=== PATIENT | female | born 1940 | race Caucasian/White ===

== ENCOUNTER 2017-01-15 09:45 | Inpatient (IN) | payer MEDICARE, OTHER ==
[2017-01-15] MEDS ORDERED: IPRATROPIUM/ALBUTEROL (0.5MG/3MG) NEB INH ONE (10:03)
[2017-01-15] MEDS ORDERED: BUMETANIDE IV 0.25 MG/ML VIAL IVP ONE ×2 (10:06→10:09)
--- NOTE | 2017-01-15 10:14 | Emergency Department Record ---
History of Present Illness - General Chief Complaint: Difficulty Breathing Stated Complaint: KAMAR Time Seen by Provider: 01/15/17 10:00 Source: Patient, Family Mode of Arrival: Wheelchair Limitations: No limitations - History of Present Illness Initial Comments: The patient is here due to SOB for the last day or so. She has also been coughing up colored sputum and may have aspirated a few days ago. There has also been a low grade fever with the cough but no CP or leg swelling. The patient has an extensive hx of CF, COPD, and Parkinson's Dz. MD Complaint: Shortness of breath Onset/Timin -: Days(s) Severity: Mild Severity scale (1-10): 1 Improves With: Bronchodilators, Oxygen Known History Of: Congestive heart failure, COPD Treatment Prior to Arrival Comment:: breathing treatments - Related Data Home Oxygen Therapy: Yes Home Oxygen Amount: 2 Liters Home Medications Medication Instructions Recorded Confirmed Last Taken Calcium Carb/Vitamin D3/Vit K1 1 each PO DAILY 01/15/17 01/15/17 1 Day Ago [Viactiv Soft Chew Tablet] ~01/14/17 Cholecalciferol (Vitamin D3) 2,000 unit PO DAILY 01/15/17 01/15/17 1 Day Ago [Vitamin D3] ~01/14/17 Digoxin [Lanoxin] 125 mcg PO DAILY 01/15/17 01/15/17 1 Day Ago ~01/14/17 Inulin/Chromium Picolinate [Fiber 2 each PO DAILY 01/15/17 01/15/17 1 Day Ago Gummies] ~01/14/17 Lisinopril [Prinivil] 2.5 mg PO DAILY 01/15/17 01/15/17 1 Day Ago ~01/14/17 Multivit with Calcium,Iron,Min 1 each PO DAILY 01/15/17 01/15/17 1 Day Ago [Multiple Vitamins For Women] ~01/14/17 Nitrofurantoin Macrocrystal 50 mg PO DAILY 01/15/17 01/15/17 1 Day Ago [Nitrofurantoin] ~01/14/17 Polyethylene Glycol 3350 [Miralax] 17 gm PO DAILY 01/15/17 01/15/17 1 Day Ago ~01/14/17 Venlafaxine HCl [Venlafaxine HCl 150 mg PO DAILY 11/05/17 11/05/17 1 Day Ago ER] ~01/14/17 Previous Rx's Medication Instructions Recorded Benzonatate [Tessalon Perles] 100 mg PO TID PRN #90 capsule 07/29/13 Levothyroxine Sodium [Synthroid] 100 mcg PO DAILYTHY #90 tablet 07/29/13 Potassium Chloride [Klor-Con M20] 20 meq PO BID #120 tab.er.prt 07/29/13 Allergies Allergy/AdvReac Type Severity Reaction Status Date / Time fentanyl [From DURAGESIC] Allergy Unknown RASH Verified 01/15/17 10:00 methadone [METHADONE] Allergy Unknown RASH Verified 01/15/17 10:00 paroxetine Allergy Unknown RASH Verified 01/15/17 10:00 pregabalin [From LYRICA] Allergy Unknown RASH Verified 01/15/17 10:00 tetanus toxoid, adsorbed Allergy Unknown RASH Verified 01/15/17 10:00 trihexyphenidyl HCl Allergy Unknown RASH Verified 01/15/17 10:00 [From ARTANE] adhesive tape Allergy RASH Verified 01/15/17 10:00 Travel Screening - Travel/Exposure Within Last 30 Days Have you traveled within the last 30 days?: No - Travel/Exposure Within Last Year Have you traveled outside the [place] in the last year?: No - Additonal Travel Details Have you been exposed to anyone with a communicable illness?: No - Travel Symptoms Symptom Screening: None Review of Systems Constitutional: Reports: Malaise. Denies: Chills Eyes: Denies: Eye discharge ENT: Denies: Congestion Respiratory: Reports: Cough, Dyspnea Cardiovascular: Denies: Arrhythmia, Chest pain Endocrine: Reports: Fatigue Gastrointestinal: Denies: Abdominal pain Genitourinary: Denies: Dysuria Musculoskeletal: Denies: Arthralgia Past Medical History - SOCIAL HISTORY Smoking Status: Former smoker - RESPIRATORY Hx Respiratory Disorders: Yes Hx Asthma: Yes Hx Bronchitis: Yes Hx COPD: Yes Hx Pneumonia: Yes - CARDIOVASCULAR Hx Cardio Disorders: Yes Hx Abnormal EKG: Yes Hx Cardiac Cath: Yes Hx Chest Pain: Yes Hx CHF: Yes Hx Deep Vein Thrombosis: Yes Hx Edema: Yes Hx Hypertension: Yes Hx Irregular Heartbeat: Yes (Afib) Hx Vascular Disease: Yes - NEURO Hx Neuro Disorders: Yes Hx Parkinson's Disease: Yes - GI Hx GI Disorders: Yes Hx GI Bleed: Yes Hx Reflux: Yes Hx Hiatal Hernia: Yes - Hx Genitourinary Disorders: Yes Hx Bladder Problem: Yes Comment:: incontinence - ENDOCRINE Hx Endocrine Disorders: Yes Hx Diabetes: No Hx Thyroid Disease: Yes - MUSCULOSKELETAL Hx Musculoskeletal Disorders: Yes Hx Arthritis: Yes - PSYCH Hx Psych Problems: Yes Hx Anxiety: Yes Hx Depression: Yes - HEMATOLOGY/ONCOLOGY Hx Hematology/Oncology Disorders: Yes Hx Anemia: Yes Hx Blood Transfusions: Yes Hx Blood Transfusion Reaction: Yes Family Medical History Any Significant Family History?: Yes Hx Depression: Mother Hx Diabetes: Father Hx Heart Disease: Mother Hx HTN: Mother Hx Resp Disorders: Father Hx Stroke: Mother Physical Exam - General General Appearance: Alert, Cooperative, Mild distress (due to KAMAR.) - Head Head exam: Atraumatic, Normocephalic - Eye Eye exam: Normal appearance, PERRL - ENT Throat exam: Normal inspection. negative: Tonsillar erythema, Tonsillar exudate - Neck Neck exam: Normal inspection, Full ROM. negative: Tenderness - Respiratory Respiratory exam: Accessory muscle use, Decreased breath sounds, Prolonged expiratory, Rhonchi (in the upper lung mota.). negative: Normal lung sounds bilaterally - Cardiovascular Cardiovascular Exam: Regular rate, Normal rhythm, Normal heart sounds - GI/Abdominal GI/Abdominal exam: Soft, Normal bowel sounds. negative: Tenderness - Extremities Extremities exam: Normal inspection, Full ROM, Normal capillary refill. negative: Tenderness Course Vital Signs 01/15/17 01/15/17 09:49 10:04 Pulse Rate 75 76 Respiratory 36 H 32 H Rate Blood Pressure 132/101 Pulse Ox 90 L 94 L - Reevaluation(s) Reevaluation #1: The patient is doing better at this time. Her breathing is much improved and she is resting more comfortably. 01/15/17 10:42 Reevaluation #2: The patient is doing better. Her breathing is much less labored and she is resting more comfortably. 01/15/17 11:06 Reevaluation #3: The patient is doing much better at this time. She is resting comfortably. I did discuss the case with Dr. Montes and he does accept the patient for admission. 01/15/17 11:46 Medical Decision Making - Data Complexity MDM Data: Labs Ordered and/or Reviewed, X-Ray Ordered and/or Reviewed, EKG Ordered and/or Reviewed - Lab Data Result diagrams: 01/15/17 10:25 01/15/17 10:25 - EKG Data -: EKG Interpreted by Me EKG: No Acute Changes, Unchanged From Previous - Radiology Data Radiology results: Report reviewed (CXR: CMG, Possible L lower lung infiltrate.) Disposition Disposition: Admit Clinical Impression: Congestive cardiac failure Qualifiers: Congestive heart failure type: unspecified congestive heart failure type Congestive heart failure chronicity: unspecified congestive heart failure chronicity Qualified Code(s): I50.9 - Heart failure, unspecified Disposition: Still a Patient at [facility] Decision to Admit: Admit from ER Decision to Admit Date: 01/15/17 Decision to Admit Time: 11:47 Accepting Physician: Debbie Time Discussed w/Accepting Physician: 11:47 Condition: (2) Stable Instructions: Dyspnea (ED) Forms: Patient Portal Access Time of Disposition: 11:47 Quality - Quality Measures Quality Measures: N/A - Blood Pressure Screening View Details: Yes Does Patient Have Any of the Following: No Blood Pressure Classification: Hypertensive Reading Systolic Measurement: 132 Diastolic Measurement: 101 Screening for High Blood Pressure: < Pre-Hypertensive BP, F/U Documented > [ [id number]] Pre-Hypertensive Follow-up Interventions: Referral to alternative/primary care provider.
[2017-01-15] MEDS ORDERED: NITROGLYCERIN/D5W 50 MG/250 ML ML IV SCH (10:15)
[2017-01-15 10:28] LABS: BASO % 0.1 % (0-6); EOS % 0.2 % (0-6); HEMATOCRIT 34.7 % (35.0-47.0); HEMOGLOBIN 10.6 gm/dl (11.6-16.0); LYMPH % 4.2 % (16-45); MEAN CORPUSCULAR HGB CONC 30.5 g/dl (32-36); MEAN PLATELET VOLUME 10.3 fl (7.4-10.4); MONO % 7.1 % (0-9); PLATELET COUNT 367 K/uL (130-400); RED BLOOD COUNT 4.18 M/uL (3.80-5.40); RED CELL DISTRIBUTION WIDTH 17.5 % (11.5-14.5)
[2017-01-15 10:34] LABS: MEAN CORPUSCULAR HEMOGLOBIN 25.3 pg (27-33); WHITE BLOOD COUNT W/O DIFF 21.1 K/uL (4.2-12.2)
[2017-01-15 10:42] LABS: INR 1.01; PARTIAL THROMBOPLASTIN TIME 26.6 SECONDS (24.5-39.1); PROTHROMBIN TIME (PATIENT) 10.9 SECONDS (9.5-12.1)
[2017-01-15 11:00] LABS: ALB/GLOB RATIO 1.3 (1.1-1.8); ALBUMIN 3.9 g/dL (4.0-5.0); ALKALINE PHOSPHATASE 149 U/L (35-104); ALT/SGPT < 5 U/L (<33); AST/SGOT 37 U/L (10.0-35.0); BLOOD UREA NITROGEN 14 mg/dL (8-23); CKMB 2.8 ng/mL (<3.77); CREATINE PHOSPHOKINASE 62 U/L (26-192); CREATININE 0.6 mg/dL (0.5-0.9); EST GLOMERULAR FILTRATION RATE > 60 mL/min; GLUCOSE,RANDOM 148 mg/dL (74-109); TOTAL PROTEIN 6.9 g/dL (6.6-8.7)
[2017-01-15 11:11] LABS: URINE APPEARANCE CLEAR; URINE BILIRUBIN NEGATIVE (NEGATIVE); URINE BLOOD NEGATIVE (NEGATIVE); URINE COLOR YELLOW; URINE GLUCOSE (UA) NEGATIVE (NEGATIVE); URINE KETONE NEGATIVE (NEGATIVE); URINE LEUKOCYTE ESTERASE NEGATIVE (NEGATIVE); URINE NITRITE NEGATIVE (NEGATIVE); URINE PROTEIN NEGATIVE (NEGATIVE); URINE UROBILINOGEN 0.2 E.U./dL (0.20 - 1.00)
[2017-01-15 11:13] LABS: ARTERIAL BLD GAS O2 SATURATION 95.8 % (95-98); ARTERIAL BLOOD GAS PCO2 43.5 mmHg (35-48); ARTERIAL BLOOD GAS pH 7.48 (7.35-7.45); CARBOXYHEMOGLOBIN 1.4 % (0-1.5); METHEMOGLOBIN 1.4 % (0.0-1.5); O2 HEMOGLOBIN 93.1 % vol (94-99); TOTAL HEMOGLOBIN 10.3 g/dl (11.6-16)
[2017-01-15 11:14] LABS: ALLEN TEST PASS
[2017-01-15] MEDS ORDERED: LEVOFLOXACIN 500MG IVPB 500 MG/100 ML BAG IVPB ONE ×2 (11:41→15:09)
--- NOTE | 2017-01-15 13:30 | RADIOLOGY REPORT ---
EXAM: CHEST AP or PA ONLY HISTORY: DYSPNEA AND WHEEZING. CHEST PAIN. COMPARISON: 11/16/07. TECHNIQUE: Portable AP semi-upright chest. FINDINGS: There is borderline cardiomegaly. Aortic atherosclerotic calcification. There appears to be streaky retrocardiac airspace disease. There also is fullness within the right iggy, which may be vascular, though underlying infiltrate or mass not excluded. No large pleural effusions. Coarsened interstitial markings within the lungs, likely related to scarring/fibrosis. IMPRESSION: 1. MILD CARDIOMEGALY AND RETROCARDIAC AIRSPACE DISEASE. AIRSPACE DISEASE COULD RELATE TO INFECTIOUS INFILTRATE OR EDEMA. 2. PROMINENCE OF THE RIGHT IGGY, WHICH MAY BE VASCULAR, THOUGH UNDERLYING MASS OR AIRSPACE DISEASE NOT EXCLUDED. JOB NUMBER: [id number] [facility]
[2017-01-15] MEDS ORDERED: ALBUTEROL HFA 8 GM INHALER INH PRN (15:09)
[2017-01-15] MEDS ORDERED: NITROGLYCERIN 0.4MG SL TABLET #25 BTL SL PRN (15:09)
[2017-01-15] MEDS ORDERED: ACETAMINOPHEN 500 MG TABLET PO PRN (15:09)
[2017-01-15] MEDS: IPRATROPIUM/ALBUTEROL (0.5MG/3MG) NEB INH SCH ×2 (16:03→21:03)
[2017-01-15] MEDS: LEVODOPA PO SCH ×2 (19:02→19:03)
[2017-01-15] MEDS: CARBIDOPA PO SCH ×2 (19:02→19:03)
[2017-01-15 19:03] LABS: CKMB 2.6 ng/mL (<3.77)
[2017-01-15] MEDS: DOCUSATE SODIUM 100 MG CAPSULE PO SCH ×2 (19:08→22:22)
[2017-01-15] MEDS: HYDROCODONE/APAP 10/325 TABLET PO SCH ×3 (19:08→22:43)
[2017-01-15] MEDS: POTASSIUM CHLORIDE 20 MEQ TABLET PO SCH (22:22)
[2017-01-15] MEDS: SIMVASTATIN 10MG TABLET PO SCH (22:22)
[2017-01-15] MEDS: NITROFURANTOIN MONO 100 MG CAPSULE PO SCH (22:23)
[2017-01-15] MEDS: CARBIDOPA MC SCH (22:27)
[2017-01-15] MEDS: LEVODOPA MC SCH (22:27)
[2017-01-16 02:42] LABS: HEMATOCRIT 31.7 % (35.0-47.0); HEMOGLOBIN 9.6 gm/dl (11.6-16.0); MEAN CELL VOLUME 83.6 fl (81-97); MEAN CORPUSCULAR HEMOGLOBIN 25.3 pg (27-33); MEAN CORPUSCULAR HGB CONC 30.3 g/dl (32-36); MEAN PLATELET VOLUME 9.5 fl (7.4-10.4); PLATELET COUNT 316 K/uL (130-400); RED BLOOD COUNT 3.79 M/uL (3.80-5.40); RED CELL DISTRIBUTION WIDTH 17.6 % (11.5-14.5)
[2017-01-16 02:52] LABS: BLOOD UREA NITROGEN 14 mg/dL (8-23); CREATININE 0.7 mg/dL (0.5-0.9); EST GLOMERULAR FILTRATION RATE > 60 mL/min; GLUCOSE,RANDOM 133 mg/dL (74-109)
[2017-01-16 02:58] LABS: CKMB 2.9 ng/mL (<3.77)
[2017-01-16] MEDS: HYDROCODONE/APAP 10/325 TABLET PO SCH ×2 (03:09→06:24)
[2017-01-16 03:45] LABS: WHITE BLOOD COUNT W/O DIFF 21.8 K/uL (4.2-12.2)
[2017-01-16] MEDS: IPRATROPIUM/ALBUTEROL (0.5MG/3MG) NEB INH SCH ×4 (05:16→21:07)
[2017-01-16] MEDS: LEVOTHYROXINE SODIUM 100 MCG TABLET PO SCH (06:24)
[2017-01-16] MEDS: PANTOPRAZOLE SODIUM 40 MG TABLET PO SCH ×2 (06:24→16:05)
[2017-01-16] MEDS: LEVODOPA MC SCH ×4 (06:31→21:55)
[2017-01-16] MEDS: CARBIDOPA MC SCH ×4 (06:31→21:55)
--- NOTE | 2017-01-16 08:27 | History & Physical ---
History of Present Illness - Date of Service Date of Service for History & Physical: 01/16/17 - History of Present Illness Admitting Diagnosis: 1. Acute CHF with hypoxia. 2. L lung pneumonia History of Present Illness: Mrs. Rico is a 76 y/o female who presents with progressive shortness of breath and cough over the past 3 days. She has a home visiting nurse who noted that the patient had an ongoing cough and shortness of breath requiring more oxygen. At baseline the patient is on 3 liters continuous oxygen for advanced stage COPD but she required 3.5-4 liters to maintain adequate saturations. She has orthopnea and exertional dyspnea. She denies chest pain, nausea, vomiting, fever or chills. She also has an extensive cardiac history with systolic heart failure, severe and atrial fibrillation. As per her there was plan for aortic valve replacement but due to the patient's poor lung function and other co-morbidities she was not considered a good surgical candidate. The patient was previously on anticoagulation for her a. fib but was discontinued due to GI bleed. On arrival to the ED the patient had chest xray which showed right nori prominence, retrocardiac opacity and mild cardiomegaly. Labs were significant for elevated BNP 3,297, WBCs 21, and metabolic alkalosis. EKG: prolonged ND interval, NSR. She was given Bumex 2mg IV, albuterol nebulization and Levaqiun for possible aspiration pneumonia. Travel Screening - Travel/Exposure Within Last 30 Days Have you traveled within the last 30 days?: No - Travel/Exposure Within Last Year Have you traveled outside the [place] in the last year?: No - Additonal Travel Details Have you been exposed to anyone with a communicable illness?: No - Travel Symptoms Symptom Screening: None, Fever (GT 100.4) Review of Systems Constitutional: Reports: Malaise. Denies: Chills Eyes: Denies: Eye discharge ENT: Denies: Congestion Respiratory: Reports: Cough, Dyspnea (requiring 3 liters home oxygen ) Cardiovascular: Reports: Murmurs (severe ). Denies: Arrhythmia, Chest pain Endocrine: Reports: Fatigue Gastrointestinal: Reports: Constipation. Denies: Abdominal pain Genitourinary: Denies: Dysuria Musculoskeletal: Denies: Arthralgia Skin: Reports: Bruising (right LE, Left forearm ) Hematological/Lymphatic: Reports: Easy bruising Past Medical History - SOCIAL HISTORY Smoking Status: Former smoker Alcohol Use: None Drug Use: None - RESPIRATORY Hx Respiratory Disorders: Yes Hx Asthma: Yes Hx Bronchitis: Yes Hx COPD: Yes Hx Pneumonia: Yes - CARDIOVASCULAR Hx Cardio Disorders: Yes Hx Abnormal EKG: Yes Hx Cardiac Cath: Yes Hx Chest Pain: Yes Hx CHF: Yes Hx Deep Vein Thrombosis: Yes Hx Edema: Yes Hx Hypertension: Yes Hx Irregular Heartbeat: Yes (Afib) Hx Vascular Disease: Yes - NEURO Hx Neuro Disorders: Yes Hx Parkinson's Disease: Yes - GI Hx GI Disorders: Yes Hx GI Bleed: Yes Hx Reflux: Yes Hx Hiatal Hernia: Yes - Hx Genitourinary Disorders: Yes Hx Bladder Problem: Yes Comment:: incontinence - ENDOCRINE Hx Endocrine Disorders: Yes Hx Diabetes: No Hx Thyroid Disease: Yes - MUSCULOSKELETAL Hx Musculoskeletal Disorders: Yes Hx Arthritis: Yes - PSYCH Hx Psych Problems: Yes Hx Anxiety: Yes Hx Depression: Yes - HEMATOLOGY/ONCOLOGY Hx Hematology/Oncology Disorders: Yes Hx Anemia: Yes Hx Blood Transfusions: Yes Hx Blood Transfusion Reaction: Yes Family Medical History Any Significant Family History?: Yes Hx Depression: Mother Hx Diabetes: Father Hx Heart Disease: Mother Hx HTN: Mother Hx Resp Disorders: Father Hx Stroke: Mother H&P Meds/Allergies - Allergies Allergies: Allergies Allergy/AdvReac Type Severity Reaction Status Date / Time fentanyl [From DURAGESIC] Allergy Unknown RASH Verified 01/15/17 10:00 methadone [METHADONE] Allergy Unknown RASH Verified 01/15/17 10:00 paroxetine Allergy Unknown RASH Verified 01/15/17 10:00 pregabalin [From LYRICA] Allergy Unknown RASH Verified 01/15/17 10:00 tetanus toxoid, adsorbed Allergy Unknown RASH Verified 01/15/17 10:00 trihexyphenidyl HCl Allergy Unknown RASH Verified 01/15/17 10:00 [From ARTANE] adhesive tape Allergy RASH Verified 01/15/17 10:00 - Home Medications Home Medications Medication Instructions Recorded Confirmed Last Taken Calcium Carb/Vitamin D3/Vit K1 1 each PO DAILY 01/15/17 01/15/17 1 Day Ago [Viactiv Soft Chew Tablet] ~01/14/17 Cholecalciferol (Vitamin D3) 2,000 unit PO DAILY 01/15/17 01/15/17 1 Day Ago [Vitamin D3] ~01/14/17 Digoxin [Lanoxin] 125 mcg PO DAILY 01/15/17 01/15/17 1 Day Ago ~01/14/17 Inulin/Chromium Picolinate [Fiber 2 each PO DAILY 01/15/17 01/15/17 1 Day Ago Gummies] ~01/14/17 Lisinopril [Prinivil] 2.5 mg PO DAILY 01/15/17 01/15/17 1 Day Ago ~01/14/17 Multivit with Calcium,Iron,Min 1 each PO DAILY 01/15/17 01/15/17 1 Day Ago [Multiple Vitamins For Women] ~01/14/17 Nitrofurantoin Macrocrystal 50 mg PO DAILY 01/15/17 01/15/17 1 Day Ago [Nitrofurantoin] ~01/14/17 Polyethylene Glycol 3350 [Miralax] 17 gm PO DAILY 01/15/17 01/15/17 1 Day Ago ~01/14/17 Venlafaxine HCl [Venlafaxine HCl 150 mg PO DAILY 01/15/17 01/15/17 1 Day Ago ER] ~01/14/17 Previous Rx's Medication Instructions Recorded Benzonatate [Tessalon Perles] 100 mg PO TID PRN #90 capsule 07/29/13 Levothyroxine Sodium [Synthroid] 100 mcg PO DAILYTHY #90 tablet 07/29/13 Potassium Chloride [Klor-Con M20] 20 meq PO BID #120 tab.er.prt 07/29/13 - Active Medications Active Medications: Current Medications Acetaminophen (Tylenol 500mg Tab) 500 mg PO Q6H PRN PRN Reason: PAIN/TEMP Hydrocodone Bitart/Acetaminophen (Jackson 10mg/325mg) 1 each PO Q4H [facility] Last Admin: 01/16/17 06:24 Dose: 1 each Albuterol Sulfate (Ventolin Hfa) 2 puff INH QID PRN PRN Reason: Asthma Albuterol/Ipratropium (Duoneb) 3 ml INH RESP.QID [facility] Last Admin: 01/16/17 05:16 Dose: 3 ml Aspirin (Aspirin Chewable) 81 mg PO DAILY [facility] Benzonatate (Tessalon) 100 mg PO TID PRN PRN Reason: COUGH Bumetanide (Bumex) 2 mg IVP DAILY [facility] Digoxin (Lanoxin) 125 mcg PO DAILY [facility] Docusate Sodium (Colace) 100 mg PO BID [facility] Last Admin: 01/15/17 22:22 Dose: 100 mg Levofloxacin (Levaquin Tab) 500 mg PO DAILYFLUOR [facility] Levothyroxine Sodium (Synthroid) 100 mcg PO DAILYTHY [facility] Last Admin: 01/16/17 06:24 Dose: 100 mcg Lisinopril (Zestril) 2.5 mg PO DAILY [facility] Montelukast Sodium (Singulair) 10 mg PO DAILY [facility] Nitrofurantoin Macrocrystals (Macrobid) 100 mg PO DAILY [facility] Last Admin: 01/15/17 22:23 Dose: 100 mg Nitroglycerin (Nitrostat 0.4mg) 0.4 mg SL Q5MIN PRN PRN Reason: Chest Pain Pantoprazole Sodium (Protonix) 40 mg PO BIDAC [facility] Last Admin: 01/16/17 06:24 Dose: 40 mg Patient Own Med: Carbidopa/Levodopa 25/250mg 1.5 each MC QIDACHS [facility] Last Admin: 01/16/17 06:31 Dose: 1.5 each Polyethylene Glycol (Miralax) 17 gm PO DAILY [facility] Potassium Chloride (Klor-Con) 20 meq PO BID [facility] Last Admin: 01/15/17 22:22 Dose: 20 meq Simvastatin (Zocor) 10 mg PO QHS [facility] Last Admin: 01/15/17 22:22 Dose: 10 mg Venlafaxine HCl (Effexor Xr) 150 mg PO DAILY [facility] Physical Exam - Vital Signs Vital Signs: Vital Signs - Last 24 Hrs Temp Pulse Pulse Resp BP Pulse Ox 01/16/17 05:16 68 26 H 100 01/16/17 05:00 97.5 F L 62 26 H 139/61 97 01/16/17 01:00 98.0 F 56 L 24 108/47 94 L 01/15/17 21:04 61 20 100 01/15/17 20:54 22 01/15/17 20:00 98.3 F 61 22 111/48 98 01/15/17 17:09 69 28 H 110/48 93 L 01/15/17 16:58 90 20 01/15/17 16:04 66 36 H 100 01/15/17 15:09 98.8 F 64 24 104/40 94 L 01/15/17 14:26 63 17 128/51 99 - General General Appearance: Alert, Cooperative, Mild distress (due to KAMAR.) Limitations: No limitations - Head Head exam: Atraumatic, Normocephalic - Eye Eye exam: Normal appearance, PERRL - ENT Throat exam: Normal inspection. negative: Tonsillar erythema, Tonsillar exudate - Neck Neck exam: Normal inspection, Full ROM. negative: Tenderness - Respiratory Respiratory exam: Accessory muscle use, Decreased breath sounds, Prolonged expiratory, Rhonchi (in the upper lung mota.). negative: Normal lung sounds bilaterally - Cardiovascular Cardiovascular Exam: Regular rate, Normal rhythm, Normal heart sounds, Systolic murmur ( over right cardiac post w/ radiation ) Peripheral Pulses: 2+: Radial (R), Radial (L), Dorsalis Pedis (R), Dorsalis Pedis (L) - GI/Abdominal GI/Abdominal exam: Soft, Normal bowel sounds. negative: Tenderness - Rectal Rectal exam: Deferred - exam: Deferred - Extremities Extremities exam: Normal inspection, Full ROM, Normal capillary refill. negative: Tenderness - Neurological Neurological exam: Alert, Oriented X3. negative: Abnormal gait - Skin Skin exam: Other (left distal LE bruising, RUE bruising ) Results - Labs Result Diagrams: 01/16/17 02:30 01/16/17 02:30 Labs Last 24 Hours: Laboratory Results - last 24 hr 01/15/17 01/16/17 01/16/17 18:37 02:30 02:30 WBC 21.8 H* RBC 3.79 L Hgb 9.6 L Hct 31.7 L MCV 83.6 MCH 25.3 L MCHC 30.3 L RDW 17.6 H Plt Count 316 MPV 9.5 Neutrophils % 84.0 H Band Neutrophils % 0.0 Eosinophils % Not Reportable Basophils % Not Reportable Lymphocytes 7.0 L Monocytes 9.0 Basophils 0.0 Eosinophil Count 0.0 Sodium Potassium Chloride Carbon Dioxide Anion Gap BUN Creatinine Estimated GFR Random Glucose Calcium CK-MB (CK-2) 2.6 2.9 Troponin T < 0.010 < 0.010 01/16/17 02:30 WBC RBC Hgb Hct MCV MCH MCHC RDW Plt Count MPV Neutrophils % Band Neutrophils % Eosinophils % Basophils % Lymphocytes Monocytes Basophils Eosinophil Count Sodium 137 Potassium 3.6 Chloride 93 L Carbon Dioxide 33.0 H Anion Gap 11.0 BUN 14 Creatinine 0.7 Estimated GFR > 60 Random Glucose 133 H Calcium 8.5 L CK-MB (CK-2) Troponin T VTE H&P Assessment - Risk for VTE Risk for VTE: Yes Risk Level: High Risk Assessment Date: 01/16/17 Risk Assessment Time: 10:22 VTE Orders Placed or Will Be Placed: No VTE Reason for No Prophylaxis: Contraindicated (pt has hx of GI bleed on coumadin) Plan - Inpatient Certification Inpatient Certification: Admit to inpatient care: Based on my medical assessment, after consideration of patient's risk factors (age, co-morbidities and patient presenting symptoms and acuity), I expect that this patient will remain in the hospital greater than or equal to two midnights and that the services needed warrant inpatient care because: Patient Risk Factors: FALL Estimated length of stay: [48 hours] The patient may reasonably be expected to be discharged or transferred to a hospital within 96 hours after admission to [facility] I certify that my determination is in accordance with my understanding of Medicare requirements for reasonable and necessary inpatient services. - Detailed Diagnosis and Plan (1) Dyspnea due to congestive heart failure Plan: - Decompensated systolic HF, EF ?, - titrate oxygen to keep sat >92% - cont IV Bumex 2mg QD, ASA 81mg, statin, Lisinopril 2.5mg, Simvastatin 10mg. - fluid restriction, daily weights, maintain clark cath, daily I/Os. Na restricted diet. - pt to follow with Dr. Cuevas (Cardiology) on d/c Current Visit: Yes Status: Acute Base Code: I50.9 - HEART FAILURE, UNSPECIFIED (2) Congestive cardiac failure Current Visit: Yes Status: Acute Qualifiers: Congestive heart failure type: unspecified congestive heart failure type Congestive heart failure chronicity: unspecified congestive heart failure chronicity Qualified Code(s): I50.9 - Heart failure, unspecified Base Code: I50.9 - HEART FAILURE, UNSPECIFIED (3) Aspiration pneumonia Plan: - reported cough with possible aspiration - CXr shows retrocardiac opacity. WBCs 21K - pt on Levaquin 500mg QD - repeat labs in am, elevate head of bed > 30, aspiration precautions, feeding assists. Current Visit: Yes Status: Acute Base Code: J69.0 - PNEUMONITIS DUE TO INHALATION OF FOOD AND VOMIT (4) COPD with exacerbation Plan: - oxygen to keep sats > 92% - albuterol nebs Q6H PRN, duonebs Q6H - chest PT as tolerated Current Visit: Yes Status: Acute Base Code: J44.1 - CHRONIC OBSTRUCTIVE PULMONARY DISEASE W (ACUTE) EXACERBATION (5) Atrial fibrillation, chronic Plan: - currently in NSR on telemetry, CHADSVASC 5. - on Digoxin 125mcg QD, [id number] - not on anticoagulation due to previous GI bleed. - pneumatic compression sleeves ordered. Current Visit: Yes Status: Acute Base Code: I48.2 - CHRONIC ATRIAL FIBRILLATION (6) Hypothyroid Plan: - cont home Synthyroid dosing Current Visit: Yes Status: Acute Base Code: E03.9 - HYPOTHYROIDISM, UNSPECIFIED (7) Parkinson disease Plan: - cont Carbidopa/Levadopa Current Visit: No Status: Acute Base Code: G20 - PARKINSON'S DISEASE Comment: 10/24/15: - Will continue patients home medication regimen (8) DVT prophylaxis Plan: - SCDs ordered while in bed Current Visit: No Status: Acute Base Code: [id number] - Comment: 10/24/15: - Ordered SCDs to be worn while in bed for DVT prophylaxis (9) DNR (do not resuscitate) Plan: Documented as discussion had with ED physician. Will address with pt and spouse. Current Visit: No Status: Acute Base Code: Z66 - DO NOT RESUSCITATE Comment: 10/24/15: Patient will remain DNR during hospital stay. Patient and family do not with to persue invasisve or aggresive treatment at this time. Patinet would like to return home as soon as possible (10) Aortic stenosis Plan: - severe but poor candidate for intervention. - no anticoag due to bleeding risk. - pt to follow w/ Dr. Cuevas. Current Visit: No Status: Acute Base Code: I35.0 - NONRHEUMATIC AORTIC ( VALVE) STENOSIS Comment: 10/24/15: [facility] cardiology Dr. Zhu consulted and performed echocardiogram on 10/22; resules showed aortic stensis. See above for plan - Disposition 76 y/o female with multiple c-morbidities who comes in with SOB and cough. Current management of possible aspiration pneumonia and CHF exacerbation. Will continue to monitor for improvement in oxygen status. Likely D/C home tomorrow.
[2017-01-16] MEDS ORDERED: ALBUTEROL SULFATE (0.083%) 2.5 MG/3 ML NEB INH PRN (09:15)
[2017-01-16] MEDS ORDERED: HYDROCODONE/APAP 10/325 TABLET PO PRN (09:18)
[2017-01-16] MEDS: VENLAFAXINE ER 75 MG CAPSULE PO SCH (09:59)
[2017-01-16] MEDS: NITROFURANTOIN MONO 100 MG CAPSULE PO SCH (10:00)
[2017-01-16] MEDS: ASPIRIN 81 MG CHEWABLE TABLET PO SCH (10:00)
[2017-01-16] MEDS: DOCUSATE SODIUM 100 MG CAPSULE PO SCH ×2 (10:00→21:56)
[2017-01-16] MEDS: MONTELUKAST SODIUM 10MG TABLET PO SCH (10:00)
[2017-01-16] MEDS ORDERED: BUMETANIDE IV 0.25 MG/ML VIAL IVP SCH (10:00)
[2017-01-16] MEDS: LISINOPRIL 5 MG TABLET PO SCH (10:00)
[2017-01-16] MEDS: POTASSIUM CHLORIDE 20 MEQ TABLET PO SCH ×2 (10:01→21:53)
[2017-01-16] MEDS: DIGOXIN 125 MCG TABLET PO SCH (10:01)
[2017-01-16] MEDS: LEVOFLOXACIN 500 MG TABLET PO SCH (10:13)
[2017-01-16] MEDS: POLYETHYLENE GLY 17 GM PACKET PO SCH (10:15)
[2017-01-16] MEDS: BENZONATATE 100 MG CAPSULE PO PRN ×2 (15:10→21:53)
[2017-01-16] MEDS: SIMVASTATIN 10MG TABLET PO SCH (21:56)
[2017-01-17] MEDS: IPRATROPIUM/ALBUTEROL (0.5MG/3MG) NEB INH SCH ×2 (06:09→11:13)
[2017-01-17 06:40] LABS: BASO % 0.1 % (0-6); GRAN % 78.2 % (47-80); HEMATOCRIT 31.8 % (35.0-47.0); HEMOGLOBIN 9.5 gm/dl (11.6-16.0); LYMPH % 9.8 % (16-45); MEAN CELL VOLUME 84.4 fl (81-97); MEAN CORPUSCULAR HGB CONC 29.9 g/dl (32-36); MEAN PLATELET VOLUME 10.5 fl (7.4-10.4); MONO % 10.9 % (0-9); PLATELET COUNT 310 K/uL (130-400); RED BLOOD COUNT 3.77 M/uL (3.80-5.40); RED CELL DISTRIBUTION WIDTH 17.6 % (11.5-14.5); WHITE BLOOD COUNT W/O DIFF 13.2 K/uL (4.2-12.2)
[2017-01-17 06:44] LABS: MEAN CORPUSCULAR HEMOGLOBIN 25.1 pg (27-33)
[2017-01-17] MEDS: LEVOFLOXACIN 500 MG TABLET PO SCH (06:50)
[2017-01-17] MEDS: LEVODOPA MC SCH ×2 (06:50→11:19)
[2017-01-17] MEDS: LEVOTHYROXINE SODIUM 100 MCG TABLET PO SCH (06:50)
[2017-01-17] MEDS: CARBIDOPA MC SCH ×2 (06:50→11:19)
[2017-01-17] MEDS: PANTOPRAZOLE SODIUM 40 MG TABLET PO SCH (06:50)
[2017-01-17] MEDS ORDERED: BUMETANIDE 1 MG TABLET PO SCH (10:00)
[2017-01-17] MEDS: ASPIRIN 81 MG CHEWABLE TABLET PO SCH (10:26)
[2017-01-17] MEDS: VENLAFAXINE ER 75 MG CAPSULE PO SCH (10:27)
[2017-01-17] MEDS: DOCUSATE SODIUM 100 MG CAPSULE PO SCH (10:27)
[2017-01-17] MEDS: POTASSIUM CHLORIDE 20 MEQ TABLET PO SCH (10:28)
[2017-01-17] MEDS: DIGOXIN 125 MCG TABLET PO SCH (10:29)
[2017-01-17] MEDS: NITROFURANTOIN MONO 100 MG CAPSULE PO SCH (10:30)
[2017-01-17] MEDS: POLYETHYLENE GLY 17 GM PACKET PO SCH (10:30)
[2017-01-17] MEDS: LISINOPRIL 5 MG TABLET PO SCH (10:31)
[2017-01-17] MEDS: MONTELUKAST SODIUM 10MG TABLET PO SCH (10:31)
--- NOTE | 2017-01-17 12:55 | Discharge Summary ---
Providers Discharge Summary Date: 01/17/17 Date of admission: 01/15/17 14:25 Expected Date of Discharge: 01/17/17 Attending physician: Lenin Lewis Primary care physician: HEIDI RUVALCABA D.O. Physical Exam - Vital Signs Vital Signs: Vital Signs - Last 24 Hrs Temp Pulse Pulse Resp BP Pulse Ox 01/17/17 11:18 64 18 01/17/17 09:00 68 24 01/17/17 06:09 69 20 100 01/17/17 05:00 97.8 F 61 24 118/50 93 L 01/17/17 01:00 97.7 F 73 28 H 151/77 98 01/17/17 00:11 26 H 98 01/16/17 21:07 86 16 100 01/16/17 19:30 97.7 F 66 24 129/48 100 01/16/17 17:04 56 L 18 100 01/16/17 17:00 98.4 F 66 20 141/54 99 01/16/17 14:57 60 30 H 97 01/16/17 14:56 60 32 H 92 L 01/16/17 13:40 57 L 18 100 01/16/17 13:00 97.8 F 55 L 20 133/53 100 - General General Appearance: Alert, Oriented x3, Cooperative, No acute distress Limitations: No limitations - Head Head exam: Atraumatic, Normocephalic - Eye Eye exam: Normal appearance, PERRL - ENT Throat exam: Normal inspection. negative: Tonsillar erythema, Tonsillar exudate - Neck Neck exam: Normal inspection, Full ROM. negative: Tenderness - Respiratory Respiratory exam: Decreased breath sounds, Prolonged expiratory. negative: Normal lung sounds bilaterally, Rhonchi - Cardiovascular Cardiovascular Exam: Regular rate, Normal rhythm, Normal heart sounds, Systolic murmur ( over right cardiac post w/ radiation ) Peripheral Pulses: 2+: Radial (R), Radial (L), Dorsalis Pedis (R), Dorsalis Pedis (L) - GI/Abdominal GI/Abdominal exam: Soft, Normal bowel sounds. negative: Tenderness - Rectal Rectal exam: Deferred - exam: Deferred - Extremities Extremities exam: Normal inspection, Full ROM, Normal capillary refill. negative: Tenderness - Neurological Neurological exam: Alert, Oriented X3. negative: Abnormal gait - Skin Skin exam: Other (left distal LE bruising, RUE bruising ) Hospitalization - Hospitalization Admission Diagnosis: 1. Acute CHF with hypoxia. 2. L lung pneumonia - Problem List/Discharge Diagnosis (1) Dyspnea due to congestive heart failure Status: Acute Base Code: I50.9 - HEART FAILURE, UNSPECIFIED Comment: - Improved. patient states SOB is back to baseline. Diuresed about 2500cc with IV bumex. says her pedal edema has improved significantly from when she came in. Dennys was dc'ed and she was transitioned to oral bumex 2mg daily. Decompensated systolic HF, EF ?. Follows with Dr. Cuevas - discharge home today. Follow up with Dr. Cuevas this monday the at [facility]. -continue ASA 81mg, statin, Lisinopril 2.5mg, Simvastatin 10mg. -continue bumex 2mg po daily along with potassium supplementation -continue fluid and Na restricted diet. (2) Aspiration pneumonia Status: Acute Discharge Diagnosis: Aspiration pneumonia type: unspecified Base Code: J69.0 - PNEUMONITIS DUE TO INHALATION OF FOOD AND VOMIT Comment: - improving clinically with decreased dyspnea and improved O2 sats at 3- 3.5L o2 via NC. On 3L continuous at home. WBC cunt down from 21 to 13 today after starting levaquin. - CXr showed retrocardiac opacity. -continue Levaquin 500mg QD for 5 more days. total 7 day course -continue aspiration precautions and feeding assists. has home nurse out daily as well which will resume upon dc. -follow up with Dr. Ruvalcaba in 1 week. nursing to schedule (3) Atrial fibrillation, chronic Status: Acute Base Code: I48.2 - CHRONIC ATRIAL FIBRILLATION Comment: - in NSR currently. On digoxin and being managed by Dr. Cuevas. no oral anticoag due to major GI bleed. currently on aspirin (4) DNR (do not resuscitate) Status: Acute Base Code: Z66 - DO NOT RESUSCITATE Comment: 01/17/17: Patient will remain DNR during hospital stay. Patient and family do not with to persue invasisve or aggresive treatment at this time. (5) DVT prophylaxis Status: Acute Base Code: [id number] - Comment: 01/17/17- no anticoagulation with history of severe GI bleed - Hospitalization Course Disposition: Home, Self-Care Hospital Course: Mrs. Rico is a 76 y/o female who presents with progressive shortness of breath and cough over the past 3 days. She has a home visiting nurse who noted that the patient had an ongoing cough and shortness of breath requiring more oxygen. At baseline the patient is on 3 liters continuous oxygen for advanced stage COPD but she required 3.5-4 liters to maintain adequate saturations. She has orthopnea and exertional dyspnea. She denies chest pain, nausea, vomiting, fever or chills. She also has an extensive cardiac history with systolic heart failure, severe and atrial fibrillation. As per her there was plan for aortic valve replacement but due to the patient's poor lung function and other co-morbidities she was not considered a good surgical candidate. The patient was previously on anticoagulation for her a. fib but was discontinued due to GI bleed. On arrival to the ED the patient had chest xray which showed right nori prominence, retrocardiac opacity and mild cardiomegaly. Labs were significant for elevated BNP 3,297, WBCs 21, and metabolic alkalosis. EKG: prolonged [place] interval, NSR. She was given Bumex 2mg IV, albuterol nebulization and Levaqiun for possible aspiration pneumonia. 01/17/17- Patient states she is feeling much better than when she came in. Says she feels like she is back to her baseline regards to her breathing. Says she has also been dyspnic with transfers or even minimal exertion at baseline. Feels like at rest she is no longer short of breath and feels her energy level has improved. Patient and are eager to get back home. Abnormal Labs: Abnormal Lab Results 01/16/17 01/16/17 01/16/17 Range/Units 02:30 02:30 07:30 WBC 21.8 H* (4.2-12.2) K/uL RBC 3.79 L (3.80-5.40) M/uL Hgb 9.6 L (11.6-16.0) gm/dl Hct 31.7 L (35.0-47.0) % MCH 25.3 L (27-33) pg MCHC 30.3 L (32-36) g/dl RDW 17.6 H (11.5-14.5) % MPV (7.4-10.4) fl Neutrophils % 84.0 H (47-80) % Lymphocytes % (16-45) % Monocytes % (0-9) % Lymphocytes 7.0 L (16-45) % Chloride 93 L (98-107) mmol/L Carbon Dioxide 33.0 H (22-29) mmol/L POC Glucose 176 H (70-110) mg/dL Random Glucose 133 H (74-109) mg/dL Calcium 8.5 L (8.8-10.2) mg/dL 01/17/17 Range/Units 06:10 WBC 13.2 H (4.2-12.2) K/uL RBC 3.77 L (3.80-5.40) M/uL Hgb 9.5 L (11.6-16.0) gm/dl Hct 31.8 L (35.0-47.0) % MCH 25.1 L (27-33) pg MCHC 29.9 L (32-36) g/dl RDW 17.6 H (11.5-14.5) % MPV 10.5 H (7.4-10.4) fl Neutrophils % (47-80) % Lymphocytes % 9.8 L (16-45) % Monocytes % 10.9 H (0-9) % Lymphocytes (16-45) % Chloride (98-107) mmol/L Carbon Dioxide (22-29) mmol/L POC Glucose (70-110) mg/dL Random Glucose (74-109) mg/dL Calcium (8.8-10.2) mg/dL Condition at Discharge: (2) Stable Discharge Medications - Discharge Medications Prescriptions: Bumetanide [Bumex] 2 mg PO DAILY #60 tablet Levofloxacin [Levaquin] 500 mg PO DAILYFLUOR #5 tablet Home Medications: Ambulatory Orders Albuterol Sulfate [Proair Hfa] 2 puff INH QID PRN 07/26/13 [Last Taken 1 Day Ago ~01/14/17] Aspirin Chewable 81 mg PO DAILY 07/26/13 [Last Taken 1 Day Ago ~01/14/17] Docusate Sodium [Stool Softener] 100 mg PO BID 07/26/13 [Last Taken 1 Day Ago ~ 01/14/17] Ferrous Sulfate 325 mg PO DAILY 07/26/13 [Last Taken 1 Day Ago ~01/14/17] Hydrocodone/Acetaminophen [Hydrocodon-Acetaminophn 10-325] 1 tab PO Q4H [Last Taken 1 Day Ago ~01/14/17] Lansoprazole [Prevacid] 30 mg PO BIDAC 07/26/13 [Last Taken 1 Day Ago ~01/14/17] Montelukast Sodium [Singulair] 10 mg PO DAILY 07/26/13 [Last Taken 1 Day Ago ~] Nitroglycerin [Nitrostat] 0.4 mg SL Q5MIN PRN 07/26/13 [Last Taken 1 Day Ago ~] Nystatin [Nystop] 1 applic TOP ASDIR 07/26/13 [Last Taken 1 Day Ago ~01/14/17] Simvastatin 10 mg PO QHS 07/26/13 [Last Taken 1 Day Ago ~01/14/17] Benzonatate [Tessalon Perles] 100 mg PO TID PRN #90 capsule 07/29/13 [Last Taken 1 Day Ago ~01/14/17] Levothyroxine Sodium [Synthroid] 100 mcg PO DAILYTHY #90 tablet 07/29/13 [Last Taken 1 Day Ago ~01/14/17] Potassium Chloride [Klor-Con M20] 20 meq PO BID #120 tab.er.prt 07/29/13 [Last Taken 1 Day Ago ~01/14/17] Ipratropium/Albuterol [Duoneb] 3 ml IH RESP.QID 02/15/14 [Last Taken 1 Day Ago ~ 01/14/17] Carbidopa/Levodopa [Carbidopa-Levo 25-250 mg Odt] 1.5 tab PO 0730,1200,1700, 2200 04/15/14 [Last Taken 1 Day Ago ~01/14/17] Magnesium Gluconate [Magonate] 250 mg PO TID 04/15/14 [Last Taken 1 Day Ago ~06/27] Calcium Carb/Vitamin D3/Vit K1 [Viactiv Soft Chew] 1 each PO DAILY 01/15/17 [ Last Taken 1 Day Ago ~01/14/17] Cholecalciferol (Vitamin D3) [Vitamin D3] 2,000 unit PO DAILY 01/15/17 [Last Taken 1 Day Ago ~01/14/17] Digoxin [Lanoxin] 125 mcg PO DAILY 01/15/17 [Last Taken 1 Day Ago ~01/14/17] Inulin/Chromium Picolinate [Fiber Gummies] 2 each PO DAILY 01/15/17 [Last Taken 1 Day Ago ~01/14/17] Lisinopril [Prinivil] 2.5 mg PO DAILY 01/15/17 [Last Taken 1 Day Ago ~01/14/17] Multivit with Calcium,Iron,Min [Multiple Vitamins For Women] 1 each PO DAILY 07/27 [Last Taken 1 Day Ago ~01/14/17] Nitrofurantoin Macrocrystal [Nitrofurantoin] 50 mg PO DAILY 01/15/17 [Last Taken 1 Day Ago ~01/14/17] Polyethylene Glycol 3350 [Miralax] 17 gm PO DAILY 01/15/17 [Last Taken 1 Day Ago ~01/14/17] Venlafaxine HCl [Venlafaxine HCl ER] 150 mg PO DAILY 01/15/17 [Last Taken 1 Day Ago ~01/14/17] Bumetanide [Bumex] 2 mg PO DAILY #60 tablet 01/17/17 [Last Taken Unknown] Levofloxacin [Levaquin] 500 mg PO DAILYFLUOR #5 tablet 01/17/17 [Last Taken Unknown] Discharge Plan - Discharge Instructions Activity at Discharge: Resume Usual Activities As Tolerated Instructions: Heart Failure (DC), A-fib (Atrial Fibrillation) (DC), Pneumonitis (DC), Dyspnea (ED), Shortness of Breath (GEN) Additional Instructions: See pre-printed discharge instructions given to patient. Follow up appt with Dr Heidi Ruvalcaba on MondayJan 25 @ 1:00pm. Follow up appt with Dr Cuevas on Monday @ 9:45am. Increase bumex to 2mg by mouth daily until your appointment with Dr. Cuevas Continue levaquin 500mg by mouth daily for the next 5 days starting tomorrow morning Continue continuous oxygen at 3.5L at home Please call with any questions or concerns Return to ED with any new or worsening symptoms Increase oxygen as needed, here using 3.5 to 4L/M. Prescriptions to [facility] here in [place]. Quality Measures - Quality Measures Quality Measures: Atrial Fibrillation & Atrial Flutter: Chronic Anticoagulation Therapy, Advance Directives, Documentation of Current Medications in Medical Record, Elder Maltreatment Screen and Follow-Up Plan, Heart Failure, Screening for High Blood Pressure and F/U Documented - Current Medications Quality Measure: Measure #130: Documentation of Current Medications Documentation of Current Medications: <Current Medications Documented/Reviewed> [N7087] - Blood Pressure Screening Quality Measure: Screening for High Blood Pressure and Follow-Up Documented Does Patient Have Any of the Following: Active Dx of HTN Blood Pressure Classification: Pre-Hypertensive BP Reading Systolic Measurement: 139 Diastolic Measurement: 61 Screening for High Blood Pressure: Patient Exclusion, Hx of HTN [I8714] - Atrial Fibrillation and Atrial Flutter Quality Measure: Atrial Fibrillation & Atrial Flutter: Chronic Anticoagulation Therapy Does Patient Have Any of the Following: No CHADS2 Risk Stratification: Age 75 or Greater, Hypertension, Heart Failure or Impaired LVSF Risk Stratification Summary: One or more high risk factors OR more than one moderate risk factor exists. [B8972] Anticoagulation Therapy: Not Prescribed for Medical Reason [G8968] Medical Reason for NOT Prescribing Anticoagulant: Risk of Bleeding - Heart Failure (KIET/ARB Therapy) Quality Measure: Heart Failure Left Ventricular Systolic Function: LV Ejection Fraction less than 40% [3021F] KIET Inhibitor or ARB Therapy for LVSD: <KIET Inhibitor or ARB therapy prescribed or currently taken> [4010F] - Heart Failure (Beta-ulisses Therapy) Quality Measure: Heart Failure Left Ventricular Systolic Function: LV Ejection Fraction less than 40% [3021F] Beta-Ulisses Therapy for LVEF < 40%: Not Prescribed Reason Documented [D4551] Reason for NOT Prescribing: Other Medical Reason (choice of therapy by cardiology. on digoxin ) - Advance Directives Quality Measure: Measure #47: Care Plan Advance Directives Established: Yes Advance Directives Information Provided To Patient: No Advance Directives on File: Yes Living Will: Yes Power of Senior Trial Attorney: Yes Power of Senior Trial Attorney Name: Bhargav Advance Care Planning: <Care Plan/Decision Maker Documented; Discussed & Documented> [1123F] - Elder Abuse Suspicion Index Screening: Elder Abuse Suspicion Index Screening Rely on people for bathing, dressing, shopping, banking, etc: No Prevented from getting food, clothes, medication, etc: No Made to feel shamed or threatened by someone: No Forced to sign papers or use money against will: No Feel afraid, touched in ways not wanted or hurt physically: No Poor eye contact, withdrawn, malnourished, cuts or bruises: No Screening Result: Negative result EASI Reference Information: [employer], Haile Goetz, Irene Prieto, Pramod Castillo.Development and validation of a tool to assist physicians identification of elder abuse: The Elder Abuse Suspicion Index (EASI ). Journal of Elder Abuse and Neglect, 2008; 20 (3): 276-300. - Elder Maltreatment Screen Quality Measures: Elder Maltreatment Screen and Follow-Up Plan Elder Maltreatment Screen: <Negative, No Follow-Up Plan Required> [G8734]
== END 2017-01-17 13:35 | disposition home or self-care (01) | DRG 177 ==
LOC: ER 09:45 → MEDSURG 14:25
PROVIDERS: ADMIT Internal Medicine; ATTEND Internal Medicine
DX: J69.0 Pneumonitis due to inhalation of food and vomit (principal); I50.23 Acute on chronic systolic (congestive) heart failure; J44.1 Chronic obstructive pulmonary disease with (acute) exacerbation; J44.9 Chronic obstructive pulmonary disease, unspecified; Z87.891 Personal history of nicotine dependence; E03.9 Hypothyroidism, unspecified; I48.2 Chronic atrial fibrillation; G20 Parkinson's disease; Z66 Do not resuscitate; I35.0 Nonrheumatic aortic (valve) stenosis
CPT/HCPCS: 36416; 36600; 71010; 80048; 80053; 81003; 82375; 82550; 82553; 82803; 82948; 83880; 84484; 85025; 85027; 85610; 85730; 93005; 93010; 93041; 94640; 94761; 96365; 96366; 96375; 99223; 99239; 99285; J1956; J7613